=== PATIENT | female | born 1935 | race African-American/Black ===

== ENCOUNTER 2024-02-22 14:56 | Observation (INO) | payer MEDICARE, BC, SELFPAY ==
[2024-02-22] VITALS (26 sets, daily range): BP systolic 125–170; BP diastolic 61–86; PULSE 75–88; RESP 13–25; TEMP 36.2–36.8; O2SAT 98–100; BMI 26.2
--- NOTE | ~2024-02-22 | US_ITS ---
EXAMINATION: US carotid duplex BI DATE: 02/23/2024 14:09 INDICATION: Syncope. TECHNIQUE: Grayscale, color Doppler, and pulsed Doppler images of the cervical carotid arteries were obtained. The degree of vessel stenosis is placed in one of the following categories: normal, <50%, 5 0-69%, >=70% but less than near-occlusion, near-occlusion, or total occlusion. Note that percent sten osis relative to normal distal artery lumen diameter is indirectly measured from velocity measurement s as described by Pollo, et al. Radiology 2003; 229:340-346. COMPARISON: None. FINDINGS: RIGHT: The right common carotid artery (CCA) peak systolic velocity (PSV) is 77 cm/s. The right internal car otid artery (ICA) PSV is 64 cm/s. The right ICA end-diastolic velocity (EDV) is 10 cm/s. The right IC A/CCA PSV ratio is 0.8. Grayscale and color Doppler images yield an estimate of <50% diameter reducti on from plaque in the ICA. There is antegrade flow in the right vertebral artery. LEFT: The left CCA PSV is 89 cm/s. The left ICA PSV is 67 cm/s. The left ICA EDV is 19 cm/s. The left ICA/C CA PSV ratio is 0.8. Grayscale and color Doppler images yield an estimate of <50% diameter reduction from plaque in the ICA. There is antegrade flow in the left vertebral artery. IMPRESSION: 1. <50% stenosis in the right internal carotid artery. 2. <50% stenosis in the left internal carotid artery. Reviewed, dictated and finalized at location A.
--- NOTE | ~2024-02-22 | CT_ITS ---
CTA chest PE protocol Ordering provider: Jun Dozier MD History: 88 years Female with . syncope, elevated d dimer . Comparison: None. Technique: CT angiogram chest was performed following timed intravenous injection of contrast. Thin s lice axial images and reformatted coronal images were obtained. Three dimensional reformatted images of the chest were also obtained using a [employer] workstation. . Automated exposure control and iterati ve reconstruction technique were employed. The dose-length product was 232.10 mGy-cm. 100 mL Omnipaqu e 350 was given IV. Findings: PULMONARY ARTERIES: No pulmonary embolus. VISUALIZED THORACIC INLET: Normal. MEDIASTINUM: Aorta/coronary arteries: Mild atheromatous disease. Ascending aorta measures 12 CNM. Heart/other: The heart is not enlarged. Lymph nodes: No mediastinal or hilar adenopathy. LUNGS: 4 mm pleural base nodule is seen measuring 4 mm in the right lower lobe posteriorly. No pulmonary mas ses. No infiltrates or effusions. No pneumothorax. VISUALIZED UPPER ABDOMEN: Multiple hypodensities in the liver most likely cysts. Large left renal cys t measuring 5.3 cm. Sliding hiatus hernia. Slightly prominent pancreatic duct. Slightly thickened wal l of the stomach.. Otherwise, the visualized upper abdomen is normal. MUSCULOSKELETAL: Soft tissues: The superficial soft tissues are normal. Bones: Age appropriate degenerative changes of the spine. IMPRESSION: 1. No pulmonary embolism. 2. No acute cardiopulmonary pathology. 3. Right base tiny nodule measuring 4 mm in the right lung base posteriorly. 12 months follow-up adv ised. Reviewed, dictated and finalized at location A. IMPRESSION: 1. No pulmonary embolism. 2. No acute cardiopulmonary pathology. 3. Right base tiny nodule measuring 4 mm in the right lung base posteriorly. 1 2 months follow-up advised.
--- NOTE | ~2024-02-22 | XR_ITS ---
CHEST RADIOGRAPH, PA AND LATERAL CLINICAL HISTORY: cp, syncope . COMPARISON: None available TECHNIQUE: PA and lateral views of the chest. FINDINGS The cardiomediastinal silhouette is unremarkable. The lungs are clear. Visualized osseous structures and soft tissues are unremarkable. IMPRESSION: No focal infiltrate or effusion. Reviewed, dictated and finalized at location A.
--- NOTE | ~2024-02-22 | CT_ITS ---
EXAMINATION: CT brain wo con DATE: 02/22/2024 16:18 INDICATION: Syncope. TECHNIQUE: Computed tomography (CT) of the head was performed without intravenous contrast. The mA wa s adjusted according to patient size. Iterative reconstruction technique was employed. The dose-lengt h product was 681.00 mGy-cm. COMPARISON: None FINDINGS: There are old infarcts involving the bilateral basal ganglia and left thalamus. There are s cattered areas of low attenuation in the cerebral white matter. There is no intracranial hemorrhage, acute infarction, or abnormal intracranial mass lesion. The ventricles are normal in size. There is m ild mucosal thickening in the paranasal sinuses. The mastoid air cells are normal. IMPRESSION: 1. Old infarcts in the bilateral basal ganglia and left thalamus. 2. Moderate nonspecific cerebral white matter disease, which likely represents chronic small vessel i schemic disease. Reviewed, dictated and finalized at location A. IMPRESSION: 1. Old infarcts in the bilateral basal ganglia and left thalamus. 2. Moderate nonspecific cerebral white matter disease, which likely represents chronic small vessel ischemic disease.
--- NOTE | 2024-02-22 15:15 | ECG_ITS ---
Test Date: 2024-02-22 15:28:01 Measurements Intervals [place] Rate: 77 P: 86 [place]: 195 QRS: -33 QRSD: 94 T: 38 QT: 376 QTc: 426 Interpretive Statements SINUS RHYTHM MARKED LEFT AXIS DEVIATION [QRS AXIS < -30] POOR R-WAVE PROGRESSION ABNORMAL ECG No previous ECG available for comparison Electronically Signed On 02-23-2024 07:19:44 CDT by Jorden Tavares M.D.
[2024-02-22 15:34] LABS: Basophils Percent Auto 0.6 % (0.2-1.2); Eosinophils Absolute Auto 0.3 K/mm3 (0-0.3); Eosinophils Percent Auto 5.1 % (0-4.4); Hematocrit 36.2 % (37.0-47.0); Hemoglobin 11.6 g/dL (12.0-15.0); Immature Granulocyte Absolute 0.02 K/mm3 (0.00-0.031); Immature Granulocyte Percent A 0.4 % (0-0.5); Lymphocytes Absolute Auto 1.62 K/mm3 (0.9-3.2); Lymphocytes Percent Auto 31.6 % (18.3-44.2); Mean Corpuscular Volume 84.4 fl (80-100); Mean Platelet Volume 9.5 fl (7.4-10.4); Monocytes Absolute Auto 0.5 K/mm3 (0.1-0.6); Monocytes Percent Auto 9.7 % (2.6-8.5); Neutrophils Absolute Auto 2.7 K/mm3 (1.3-6.7); Neutrophils Percent Auto 52.6 % (45.5-73.1); Platelet Count Result 218 k/mm3 (150-375); Red Blood Count 4.29 M/mm3 (4.2-5.4); Red Cell Distribution Width 14.6 % (11.5-14.5); White Blood Count 5.1 K/mm3 (4.5-10.0)
--- NOTE | 2024-02-22 15:37 | ED.SYNCOPE ---
HPI - Syncope General Chief Complaint: Syncope <JADIEL Ramirez Last Filed: 02/22/24 15:41> Stated Complaint: syncope <JADIEL Ramirez Last Filed: 02/22/24 15:41> Time Seen by Provider: 02/22/24 15:34 <JADIEL Ramirez Last Filed: 02/22/24 15:41> Focused HPI: Patient is an 88 y/o female, with PMH of dementia, who presents to the ED with report of syncope. Daughter at bedside assisted in providing information. Reports patient was clutching her chest several times today. They went to the [place] where patient had another episode of clutching her chest and then had a syncopal episode. Then brought here for further evaluation. Patient states she feels fine currently. Denies dizziness, LH, CP, SOB currently. Denies focal weakness. GENERAL: Elderly, well-nourished, and in no acute distress. HEAD: Normocephalic, atraumatic. CHEST: Clear to auscultation. ?No respiratory distress. HEART: Regular rate and rhythm.? NEURO: ?Alert and oriented x2. Pleasantly confused. No focal deficits. Patient screened in triage and initial orders placed.? ?Additional care and disposition to be based upon?diagnostic testing and treatment. <JADIEL Ramirez Last Filed: 02/22/24 15:41> Source: patient and family <JADIEL Ramirez Last Filed: 02/22/24 15:41> Mode of arrival: ambulatory <JADIEL Ramirez Last Filed: 02/22/24 15:41> Limitations: no limitations and dementia <JADIEL Ramirez Last Filed: 02/22/24 15:41> History of Present Illness HPI narrative: patient 88-year-old female who presents emergency department with chief complaint of syncope. The patient reports that she has history of dementia reports that she has had several episodes today where she just was not feeling well and was clutching chest patient was then taken out to the pumpkin patch by her penitentiary facility and then while at the pumpkin [place] the patient became unresponsive the patient woke up on the ground with EMS at the scene patient currently states that she feels just a little tired the patient states she is currently not having any chest pain denies shortness of breath <Jun Dozier MD - Last Filed: 02/22/24 22:10> Related Data Home Medications: Home Medications Medication Instructions Recorded Confirmed amlodipine 10 mg tablet 10 mg PO 02/22/24 aspirin 81 mg chewable tablet 81 mg PO 02/22/24 carvedilol 25 mg tablet 25 mg PO 02/22/24 clopidogrel 75 mg tablet 75 mg PO 02/22/24 magnesium oxide 400 mg PO DAILY 02/22/24 02/22/24 metformin 500 mg tablet 500 mg PO 02/22/24 olmesartan 40 mg tablet 40 mg PO 02/22/24 tolterodine 4 mg capsule,extended 4 mg PO 02/22/24 release 24 hr trazodone 50 mg tablet 50 mg PO 02/22/24 <Ada Crespo PA-C - Last Filed: 02/22/24 15:41> Allergies/Adverse Reactions: Allergies Allergy/AdvReac Type Severity Reaction Status Date / Time No Known Allergies Allergy Verified 02/22/24 18:22 <Ada Crespo PA-C - Last Filed: 02/22/24 15:41> Review of Systems Review of Systems: A 10 system review of systems was completed on the patient and is negative except for what is stated in the HPI. Nursing and ancillary documentation was reviewed. <Jun Dozier MD - Last Filed: 02/22/24 22:10> Exam Narrative: GENERAL: Well-appearing, well-nourished, and in no acute distress. HEAD: Normocephalic, atraumatic. EYES: PERRLA and EOMI. ENT: Nares clear, no rhinorrhea or epistaxis. Mucous membranes moist. NECK: Supple. CHEST: Clear to auscultation. No respiratory distress. HEART: Regular rate and rhythm. No murmur heard. Normal peripheral pulses. ABDOMEN: Soft, nontender, nondistended, normal active bowel sounds. EXTREMITIES: Normal range of motion. No edema. SKIN: Warm, dry, no rash. NEURO: No focal deficits. Alert and oriented x3. PSYCH: Normal
[2024-02-22 15:46] LABS: Partial Thromboplastin Time 23.8 Seconds (22.3-36.8)
[2024-02-22 15:48] LABS: Alanine Aminotransferase 16 U/L (6-35); Albumin Level 4.5 g/dL (3.5-5.1); Alkaline Phosphatase 78 U/L (38-126); Anion Gap 12 mmol/L (4-12); Aspartate Amino Transferase 26 U/L (14-36); Bilirubin,Total 0.4 mg/dL (0.2-1.3); Blood Urea Nitrogen 18 mg/dL (7-17); Carbon Dioxide 25 mmol/L (22-30); Chloride 100 mmol/L (98-107); Estimated CRCL calculation 23 ml/min; Estimated Glomerular Filt Rate 39; Glucose 204 mg/dL (65-110); Lipase 125 U/L (23-300); Sodium 137 mmol/L (137-145)
[2024-02-22 15:57] LABS: Troponin I < 0.012 ng/mL (0.000-0.034)
[2024-02-22 16:01] LABS: Magnesium 1.8 mg/dL (1.6-2.3)
[2024-02-22 16:24] LABS: D Dimer 0.52 ug/mL (<0.48)
--- NOTE | 2024-02-22 18:08 | ECG_ITS ---
Test Date: 2024-02-22 18:16:07 Measurements Intervals [place] Rate: 81 P: 65 [place]: 189 QRS: -40 QRSD: 89 T: 51 QT: 368 QTc: 428 Interpretive Statements SINUS RHYTHM MARKED LEFT AXIS DEVIATION [QRS AXIS < -30] POOR R-WAVE PROGRESSION ABNORMAL ECG Compared to ECG 02/22/2024 15:28:01 NO DIFFERENCE Electronically Signed On 02-23-2024 07:26:03 CDT by Jorden Tavares M.D.
[2024-02-22 19:14] LABS: Troponin I < 0.012 ng/mL (0.000-0.034)
--- NOTE | 2024-02-22 20:50 | PC.NURSE ---
Bed alarm put in place at this time.
--- NOTE | 2024-02-22 21:08 | ECG_ITS ---
Test Date: 2024-02-22 21:16:13 Measurements Intervals [place] Rate: 78 P: 73 [place]: 198 QRS: -39 QRSD: 89 T: 51 QT: 382 QTc: 435 Interpretive Statements SINUS RHYTHM POSSIBLE LEFT ATRIAL ENLARGEMENT [-0.1mV P WAVE IN V1/V2] MARKED LEFT AXIS DEVIATION [QRS AXIS < -30] POOR R-WAVE PROGRESSION ABNORMAL ECG Compared to ECG 02/22/2024 18:16:07 NO DIFFERENCE Electronically Signed On 02-23-2024 07:29:44 CDT by Jorden Tavares M.D.
[2024-02-22 21:44] LABS: Troponin I < 0.012 ng/mL (0.000-0.034)
--- NOTE | 2024-02-22 23:52 | ADMGEN ---
This patient, Zena Clemons, was admitted to [address] [facility] Surg Room 307-02. Patient/family oriented to hospital policies and general routines including ID bracelet, bed and alarms, visiting hours, pain management, procedures, bathroom and other care routines, personal items, smoking policy, room service/diet, and visiting hours. Information on how to activate the Rapid Response Team has been discussed. Patient/Family are encouraged to report perceived risks to care and to ask questions if they do not understand what they are told or what they should do.
[2024-02-23] VITALS (13 sets, daily range): BP systolic 118–155; BP diastolic 56–80; PULSE 70–80; RESP 16–20; TEMP 36.1–36.3; O2SAT 100
--- NOTE | 2024-02-23 | ECHO_ITS ---
Patient Info Name: Zena Clemons Age: 88 years : 1935 Gender: Female Ht: 64 in Wt: 153 lbs BSA: 1.79 m2 HR: 71 bpm BP: 141 / 66 mmHg Heart Rhythm: Sinus Rhythm Technical Quality: Fair Exam Date: 02/23/2024 11:34 AM Exam Location: Echo Lab Patient Status: Inpatient Admit Date: 02/22/2024 Staff Ordering Physician: Earl Ashby APRN Rn Labor Delivery: Quinn Rodriguez RDCS Attending Provider: Araceli Arango MD Referring Physician: Isma RAMIREZ; Exam Type: CA echo doppler w bubble study Study Info Indications R55 - Syncope and collapse Complete two-dimensional, color flow and Doppler transthoracic echocardiogram is performed with agitated saline. Contrast/Agitated Saline Contrast/Ag. Saline: Agitated Saline Amount: 14.00 ml Summary 1. Normal left ventricular size, thickness and vigorous hyperdynamic appearing systolic function. 2. Grade 1 diastolic noncompliance. 3. Trivial MR. 4. Agitated saline contrast injection shows no evidence of shunt. Left Ventricle Left ventricular chamber dimension is normal. Left ventricular systolic function is hyperdynamic, estimated at >70%. The left ventricular diastolic function is grade I diastolic dysfunction. Right Ventricle Right ventricular chamber dimension is normal. Left Atria Left atrial chamber dimension is mildly enlarged. Right Atria Right atrial chamber dimension is normal. Atrial Septum Intact interatrial septum visualized by agitated saline imaging. Aortic Valve The aortic valve is normal. Pulmonic Valve The pulmonic valve is normal. Mitral Valve The mitral valve has normal leaflets. There is trace mitral valve regurgitation. Tricuspid Valve The tricuspid valve leaflets are normal. Pericardium/Pleural The pericardium appears normal. Aorta The aortic root size at the sinus of Valsalva is normal. Left Ventricular Outflow Tract Name Value Normal LVOT 2D LVOT Diameter 2.0 cm LVOT Doppler LVOT Peak Gradient 4 mmHg LVOT Mean Gradient 2 mmHg LVOT VTI 19 cm LVOT VTI/AV VTI Ratio 0.7 LVOT Stroke Volume 61 ml LVOT CO 4.3 l/min LVOT CI 2.4 l/min/m2 Pulmonic Valve Name Value Normal PV Doppler PV Peak Gradient 3 mmHg PV Regurgitation Doppler ND Peak End Diastolic Velocity 85 cm/s Mitral Valve Name Value Normal MV Doppler MV Decel Bent
[2024-02-23] MEDS: SODIUM CHLORIDE 0.9% IV 1,000 ML 125 ML IV CONT ×2 (00:34→12:22)
[2024-02-23] MEDS: carvediloL 25 MG TABLET PO ×2 (08:41→20:01)
[2024-02-23] MEDS: amLODIPine BESYLATE 10 MG TABLET PO (08:41)
[2024-02-23] MEDS: ASPIRIN 81 MG CHEWABLE TABLET PO (08:41)
[2024-02-23] MEDS: PANTOPRAZOLE 40 MG TABLET PO (08:41)
[2024-02-23] MEDS: CLOPIDOGREL BISULFATE 75 MG TABLET PO (08:41)
[2024-02-23] MEDS: PRAVASTATIN SODIUM 20 MG TABLET 40 MG PO (08:41)
[2024-02-23] MEDS: MAGNESIUM OXIDE 400 MG TABLET PO (08:41)
[2024-02-23 08:52] LABS: Glucose Point of Care 119 mg/dl (65-105)
[2024-02-23 09:51] LABS: Basophils Percent Auto 0.7 % (0.2-1.2); Eosinophils Absolute Auto 0.2 K/mm3 (0-0.3); Eosinophils Percent Auto 3.1 % (0-4.4); Hemoglobin 12.2 g/dL (12.0-15.0); Immature Granulocyte Absolute 0.01 K/mm3 (0.00-0.031); Immature Granulocyte Percent A 0.2 % (0-0.5); Lymphocytes Absolute Auto 1.89 K/mm3 (0.9-3.2); Lymphocytes Percent Auto 34.1 % (18.3-44.2); Mean Corpuscular HGB Conc 31.3 g/dl (32-36); Mean Corpuscular Hemoglobin 26.2 pg (26-34); Mean Corpuscular Volume 83.9 fl (80-100); Mean Platelet Volume 9.2 fl (7.4-10.4); Monocytes Absolute Auto 0.5 K/mm3 (0.1-0.6); Monocytes Percent Auto 9.2 % (2.6-8.5); Neutrophils Absolute Auto 2.9 K/mm3 (1.3-6.7); Neutrophils Percent Auto 52.7 % (45.5-73.1); Platelet Count Result 217 k/mm3 (150-375); Red Blood Count 4.65 M/mm3 (4.2-5.4); Red Cell Distribution Width 14.5 % (11.5-14.5); White Blood Count 5.5 K/mm3 (4.5-10.0)
[2024-02-23 10:12] LABS: Alanine Aminotransferase 14 U/L (6-35); Albumin Level 4.5 g/dL (3.5-5.1); Alkaline Phosphatase 84 U/L (38-126); Anion Gap 10 mmol/L (4-12); Aspartate Amino Transferase 25 U/L (14-36); Bilirubin,Total 0.6 mg/dL (0.2-1.3); Blood Urea Nitrogen 11 mg/dL (7-17); Calcium 10.1 mg/dL (8.4-10.2); Carbon Dioxide 27 mmol/L (22-30); Chloride 101 mmol/L (98-107); Estimated CRCL calculation 29 ml/min; Estimated Glomerular Filt Rate > 60; Glucose 174 mg/dL (65-110); Magnesium 1.7 mg/dL (1.6-2.3); Potassium 3.9 mmol/L (3.4-5.0); Sodium 138 mmol/L (137-145)
--- NOTE | 2024-02-23 11:30 | PM.IMHP ---
H&P: HPI History of Present Illness Date/Time: 02/23/24 11:30 Chief Complaint: Syncope Narrative: This is an 88-year-old female patient resident of [facility] in [facility] presented to the emergency department after syncopal episode. Yesterday patient was grabbing at her chest throughout the day according to ER records that the daughter mentioned. She was at a pumpkin patch with her daughter and had a syncopal episode. Patient states she does not recall having any pain or dizziness prior to the episode but just can remember waking up on the ground. Patient denies any trauma or injury. She has a history of hypertension coronary artery disease type 2 diabetes hyperlipidemia prior stroke and GERD. Patient denies history coronary stents or any chest/abdomen surgeries. Patient currently on 81 mg aspirin and [address] scan noncontrast of the showed some evidence of old stroke no acute findings. Chest x-ray was normal. D-dimer was minimally elevated but would have been negative if taking into account age adjusted D-dimer. CTA was completed of the chest in the emergency department no PE, negative except 4 mm nodule right lower lobe. Labs showed an apparent GISSELL as patient does recall a history of renal dysfunction. No prior records at this facility. She was given IV fluids on admission. Repeat labs this morning show significant improvement in renal. Hemoglobin A1c 6.7, patient only takes metformin 100 mg daily at home. Troponin was negative x3. Laboratory workup is otherwise unremarkable. Ordered carotid Dopplers and echocardiogram with bubble study. Patient has no focal neuro deficits on exam. Review of Systems Review of Systems: All systems reviewed & are unremarkable except as noted in HPI and below [facility] Past Medical History Medical History (Updated 02/23/24 @ 18:28 by Earl Ashby APRN) CAD (coronary artery disease) Dementia History of CVA (cerebrovascular accident) HTN (hypertension) Type 2 diabetes mellitus Social History Social History Smoking packs per day: 0.5 Smoking cigarettes per day: 10.0 Years smoked: 3 Smoking pack-years: 1.50 Smoking status: Former smoker Second hand tobacco smoke exposure: No Alcohol intake: former Drinks per week: 1 Substance use: never Do You Feel Safe in your Home?: Yes Lack of Transportation: No Lack of Food: Never True Current Housing: I Have Housing Concerned About Future Housing: No Difficulty Paying Gas/Electric Bills: No Difficulty Paying for Meds: No Currently Unemployed: No Education: Associate Degree Difficulty w/ Childcare or Family Care: No Spiritual care concerns: No Meds Home Medications and Allergies Home Medications Medication Instructions Recorded Confirmed Type amlodipine 10 mg tablet 10 mg PO DAILY 02/22/24 02/23/24 History aspirin 81 mg chewable tablet 81 mg PO DAILY 02/22/24 02/23/24 History carvedilol 25 mg tablet 25 mg PO Q12H 02/22/24 02/23/24 History clopidogrel 75 mg tablet 75 mg PO DAILY 02/22/24 02/23/24 History magnesium oxide 400 mg PO DAILY 02/22/24 02/22/24 History metformin 500 mg tablet 500 mg PO DAILY 02/22/24 02/23/24 History olmesartan 40 mg tablet 40 mg PO DAILY 02/22/24 02/23/24 History trazodone 50 mg tablet 50 mg PO DAILY 02/22/24 02/23/24 History omeprazole 40 mg capsule,delayed 40 mg PO DAILY 02/23/24 02/23/24 History release pravastatin 40 mg tablet 40 mg PO DAILY 02/23/24 02/23/24 History Allergies Allergy/AdvReac Type Severity Reaction Status Date / Time No Known Allergies Allergy Verified 02/22/24 18:22 Vital Signs Vital Signs - 24 hr 02/22/24 15:11 02/22/24 18:26 02/22/24 18:27 Temperature 36.2 C L Pulse Rate 75 80 Respiratory Rate 20 Blood Pressure 140/62 Pulse Oximetry 100 100 Oxygen Delivery Room Air Room Air 02/22/24 18:27 02/22/24 18:27 02/22/24 18:49 Tem
[2024-02-23 12:20] LABS: Glucose Point of Care 130 mg/dl (65-105)
[2024-02-23 12:41] LABS: Hemoglobin A1C 6.7 % (<5.7)
[2024-02-23 16:41] LABS: Glucose Point of Care 133 mg/dl (65-105)
[2024-02-23] MEDS: traZODone HCL 50 MG TABLET PO (20:01)
[2024-02-23 21:43] LABS: Glucose Point of Care 150 mg/dl (65-105)
[2024-02-24] VITALS (13 sets, daily range): BP systolic 110–146; BP diastolic 54–77; PULSE 67–87; RESP 14–18; TEMP 35.8–36.4; O2SAT 98–100
[2024-02-24 07:03] LABS: Basophils Absolute Auto 0.1 K/mm3 (0.0-0.1); Basophils Percent Auto 0.9 % (0.2-1.2); Eosinophils Absolute Auto 0.3 K/mm3 (0-0.3); Eosinophils Percent Auto 5.5 % (0-4.4); Hematocrit 36.2 % (37.0-47.0); Hemoglobin 11.4 g/dL (12.0-15.0); Immature Granulocyte Absolute 0.02 K/mm3 (0.00-0.031); Immature Granulocyte Percent A 0.4 % (0-0.5); Lymphocytes Percent Auto 38.7 % (18.3-44.2); Mean Corpuscular HGB Conc 31.5 g/dl (32-36); Mean Corpuscular Hemoglobin 26.9 pg (26-34); Mean Corpuscular Volume 85.4 fl (80-100); Mean Platelet Volume 9.6 fl (7.4-10.4); Monocytes Absolute Auto 0.7 K/mm3 (0.1-0.6); Monocytes Percent Auto 11.4 % (2.6-8.5); Neutrophils Absolute Auto 2.5 K/mm3 (1.3-6.7); Neutrophils Percent Auto 43.1 % (45.5-73.1); Platelet Count Result 210 k/mm3 (150-375); Red Blood Count 4.24 M/mm3 (4.2-5.4); Red Cell Distribution Width 14.6 % (11.5-14.5); White Blood Count 5.7 K/mm3 (4.5-10.0)
[2024-02-24 07:33] LABS: Alanine Aminotransferase 12 U/L (6-35); Albumin Level 4.3 g/dL (3.5-5.1); Alkaline Phosphatase 70 U/L (38-126); Anion Gap 7 mmol/L (4-12); Aspartate Amino Transferase 24 U/L (14-36); Bilirubin,Total 0.6 mg/dL (0.2-1.3); Blood Urea Nitrogen 16 mg/dL (7-17); Calcium 10.2 mg/dL (8.4-10.2); Carbon Dioxide 28 mmol/L (22-30); Chloride 103 mmol/L (98-107); Estimated CRCL calculation 21 ml/min; Estimated Glomerular Filt Rate 43; Glucose 112 mg/dL (65-110); Magnesium 1.8 mg/dL (1.6-2.3); Potassium 3.9 mmol/L (3.4-5.0); Sodium 138 mmol/L (137-145)
[2024-02-24 07:43] LABS: Glucose Point of Care 126 mg/dl (65-105)
[2024-02-24] MEDS: PRAVASTATIN SODIUM 20 MG TABLET 40 MG PO (08:03)
[2024-02-24] MEDS: MAGNESIUM OXIDE 400 MG TABLET PO (08:03)
[2024-02-24] MEDS: carvediloL 25 MG TABLET PO ×2 (08:03→20:23)
[2024-02-24] MEDS: PANTOPRAZOLE 40 MG TABLET PO (08:04)
[2024-02-24] MEDS: CLOPIDOGREL BISULFATE 75 MG TABLET PO (08:04)
[2024-02-24] MEDS: ASPIRIN 81 MG CHEWABLE TABLET PO (08:04)
[2024-02-24] MEDS: amLODIPine BESYLATE 10 MG TABLET PO (08:04)
[2024-02-24 11:29] LABS: Glucose Point of Care 125 mg/dl (65-105)
[2024-02-24 15:53] LABS: SARS-CoV-2 RNA PCR Negative (Negative)
--- NOTE | 2024-02-24 17:01 | PM.DS ---
DS: Admitting Diagnosis Discharge Date 02/24/2024 Admitting Diagnosis Syncope DS: Discharge Diagnosis Discharge Diagnosis (1) Syncope: Code(s): R55 - Syncope and collapse Status: Acute (2) HTN (hypertension): Code(s): I10 - Essential (primary) hypertension Status: Acute (3) Type 2 diabetes mellitus: Code(s): E11.9 - Type 2 diabetes mellitus without complications Status: Acute (4) Dementia: Code(s): F03.90 - Unspecified dementia, unspecified severity, without behavioral disturbance, psychotic disturbance, mood disturbance, and anxiety Status: Acute DS: Summary Hospital Course Reason for hospitalization: Syncope Hospital Course: Patient was an 88-year-old female who presented to the emergency department from her assisted living for witnessed syncopal episode while walking around at the pumpkin patch with her family. Patient denied any loss of consciousness or adding her head denied any dizziness prior to the syncopal episode. Patient was admitted for further evaluation and treatment CT head showed old stroke with no acute process CTA negative for PE but did show a 4 mm nodule right lower lobe to his also found to have a mild GISSELL which improved with IV fluids. Patient showed no signs of focal neuro deficits exam in denied any further syncopal episodes during admission. Echocardiogram showed LVEF greater than 70% with no shunting, carotid arteries less than 50% bilateral, and orthostatics positive. No further treatment than IV fluids patient improved overall with no events and was seen by Physical and Occupational therapy stable to return back to her assisted living, patient was then discharged back to her assisted living. Status at Discharge Functional status at discharge: uses cane/walker Overall status at discharge: patient is back to baseline Time Spent with Patient Time attestation: Total time spent providing and/or coordinating discharge services: Time spent: Greater than 30 minutes Exam Narrative: GENERAL: Well-appearing, well-nourished, and in no acute distress. Appears younger than stated age HEAD: Normocephalic, atraumatic. ENT:? Mucous membranes moist. CHEST: Clear to auscultation.? No respiratory distress. HEART: Regular rate and rhythm. ? Normal peripheral pulses. ABDOMEN: Soft, nontender, nondistended. EXTREMITIES: Normal range of motion. No peripheral edema. SKIN: Warm dry normal color NEURO: Alert and oriented x3. PSYCH: Normal mood and affect DS: Data Data Completed and Pending Labs on day of discharge: Labs from last 24 hours 02/24/24 02/24/24 02/24/24 15:05 11:27 07:40 WBC RBC Hgb Hct MCV MCH MCHC RDW Plt Count MPV Immature Gran % (Auto) Neut % (Auto) Lymph % (Auto) [place] % (Auto) Eos % (Auto) Baso % (Auto) Lymph # (Auto) [place] # (Auto) Eos # (Auto) Baso # (Auto) Abs Immat Gran (auto) Absolute Neuts (auto) Absolute Nucleated RBC Nucleated RBC % Sodium Potassium Chloride Carbon Dioxide Anion Gap BUN Creatinine Estim Creat Clear Calc Estimated GFR Glucose POC Capillary Glucose 125 H 126 H Calcium Magnesium Total Bilirubin AST ALT Alkaline Phosphatase Total Protein Albumin SARS-CoV-2 RNA (RT-PCR) Negative 02/24/24 02/23/24 06:29 20:37 WBC 5.7 RBC 4.24 Hgb 11.4 L Hct 36.2 L MCV 85.4 MCH 26.9 MCHC 31.5 L RDW 14.6 H Plt Count 210 MPV 9.6 Immature Gran % (Auto) 0.4 Neut % (Auto) 43.1 L Lymph % (Auto) 38.7 [place] % (Auto) 11.4 H Eos % (Auto) 5.5 H Baso % (Auto) 0.9 Lymph # (Auto) 2.20 [place] # (Auto) 0.7 H Eos # (Auto) 0.3 Baso # (Auto) 0.1 Abs Immat Gran (auto) 0.02 Absolute Neuts (auto) 2.5 Absolute Nucleated RBC 0.000 Nucleated RBC % 0.0 Sodium 138 Potassium 3.9 Chloride 103 Carbon Dioxide 28 An
[2024-02-24 17:04] LABS: Glucose Point of Care 142 mg/dl (65-105)
--- NOTE | 2024-02-24 23:59 | PC.NURSE ---
Pt discharged per EMS at 2300 on this date back to [place]. Pt's IV and tele monitor were removed. Report was called to CHANTALE Tian by day shift nurse.
== END 2024-02-24 23:00 ==
LOC: ANHED 22:10 → ANH3MEDSUR 23:31
PROVIDERS: Emergency Medicine; Nurse Practitioner; Physician Assistant; Admitting Provider Internal Medicine; Emergency Provider Emergency Medicine; Visit Provider Nurse Practitioner Family
DX: R55 Syncope and collapse (principal); N17.9 Acute kidney failure, unspecified; I10 Essential (primary) hypertension; E11.9 Type 2 diabetes mellitus without complications; F03.90 Unspecified dementia, unspecified severity, without behavioral disturbance, psychotic disturbance, mood disturbance, and anxiety; I25.10 Atherosclerotic heart disease of native coronary artery without angina pectoris; E78.5 Hyperlipidemia, unspecified; K21.9 Gastro-esophageal reflux disease without esophagitis; Z20.822 Contact with and (suspected) exposure to COVID-19; Z79.82 Long term (current) use of aspirin; Z79.899 Other long term (current) drug therapy; Z86.73 Personal history of transient ischemic attack (TIA), and cerebral infarction without residual deficits; Z79.84 Long term (current) use of oral hypoglycemic drugs; Z79.02 Long term (current) use of antithrombotics/antiplatelets
CPT/HCPCS: 36415; 70450; 71046; 71275; 80053; 82948; 83036; 83690; 83735; 84484; 85025; 85380; 85610; 85730; 87635; 93005; 93306; 93880; 96360; 96361; 96375; 99285; A9270; G0378; J7030; Q9967